=== PATIENT | female | born 1975 | race Caucasian/White ===

== ENCOUNTER 2023-03-16 15:00 | Outpatient (AMB) | payer BC, SELFPAY ==
--- NOTE | 2023-03-16 15:09 | HO.SPINEOV ---
Intake Intake Visit Reasons: Low back pain Intake Note: Ms. Randall is here today c/o low back pain. Medical Management Specialist Required: No Assessment & Plan Assessment & Plan (1) Lumbar disc herniation: Code(s): M51.26 - Other intervertebral disc displacement, lumbar region Plan Mrs aRndall is presenting to the office today self-referred for evaluation of back pain. 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 Through the years she has treated it with physical therapy, healthcare or medical, acupuncture, [id number] pain medications such as Tylenol and ibuprofen, as well as cortisone injections done at [facility] and [facility]. Unfortunately none of these things have ever given her lasting relief. Her symptoms are aggravated with standing. She will occasionally get tingling and numbness down her right leg which encompasses her whole foot. At this point her quality of life is suffering. She has been athletic her whole life and now she is at a point where she can barely stand for any length of time before the pain gets so bad she has to sit down. She has an MRI showing progressively herniating central disc at L5-S1. She had seen a surgeon at [facility] who recommended anterior lumbar interbody fusion. She also saw a surgeon at the [facility] who recommended TLIF. She is hoping to avoid fusion if possible so she came today to see us as a 3rd opinion. PMH: She is otherwise healthy, 2 shoulder surgeries. Social hx: She does not smoke, she is a teacher Medications: Omeprazole, duloxetine, ibuprofen Allergies: None Physical exam: Intact gait, strength and reflexes Imaging review: Lumbar MRI done at [facility] in 2021 shows a progressively deteriorating L5-S1 collapsing disc. We can see on her MRIs dating back to 2018 that the disc is slowly collapsed in his centrally protruding at this point is herniating significantly. It is displacing the S1 nerve roots bilaterally. X-rays done did not show any signs of instability. There is no spondylolisthesis or spondylolysis. 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 She has failed conservative treatment. She has a large centrally herniated disc at L5-S1. Dr. Desouza and I met with her, discussed potential treatment options including surgery. Specifically we discussed the fact that it is well-known that a central disc herniation can cause back pain and that a simple microdiskectomy can be an option for treatment. We did discuss the fact that there is risk for reherniation. If this occurs, the patient would need to have lumbar fusion surgery. The patient is interested in moving ahead with surgery. She will coordinate a date sometime around the new year and get back to our office.. Pt was given risk and benefits of surgery including but not limited to infection, hematoma , nerve injury,durotomy, weakness, persistent pain, need for fusion as well as the option to continue with conservative treatment and patient wishes to proceed with surgery. Pt is aware they should stop their motrin, aspirin 7 days prior to surgery. All questions were answered to the best of our ability. Thank you for allowing us to care for your patient. The total time spent with this visit with this patient was 45 minutes reviewing history, physical exam, lumbar imaging review, and implementation of treatment plan or further diagnostic testing Marques Desouza MD,PhD [facility] Coding Level of Care Code New Pt Level 4 (52714) Diagnoses Lumbar disc herniation M51.26
== END 2023-03-16 16:39 | disposition home or self-care (01) ==
PROVIDERS: PCP Internal Medicine; Referring Provider Internal Medicine; Visit Provider Physician Assistant
DX: M51.26 Other intervertebral disc displacement, lumbar region (principal)
CPT/HCPCS: 99204

== ENCOUNTER → 2023-03-16 15:00 | Outpatient (BNVA) | payer BC, SELFPAY | PROVIDERS: PCP Internal Medicine; Visit Provider Physician Assistant ==

== ENCOUNTER 2023-07-13 06:06 | Inpatient (IN) | payer BC, SELFPAY ==
[2023-07-01 11:58] VITALS: BMI 29.6
[2023-07-01 12:03] VITALS: BP 135/85; PULSE 78; RESP 16; O2SAT 98
--- NOTE | 2023-07-01 12:09 | P.CONAN_ITS ---
Documented by User: Pam Wilson NP 07/12/23 10:06 HPI - Anesthesia Eval Consult details Narrative: 47yo F for L5-S1 Ant Lumbar Interbody Fusion, 07/13/23 Bronchitis about 4 weeks ago. Completely resolved. No need for albuterol. No CP/SOB with groceries/house work PONV. Scop patch used on cruise before with good effect s/p uvuloectomy with emergent tonsilectomy/abcess PMFSH Active Problems Active Problems: All Active Problems (Updated 07/01/23 @ 11:57 by Kalyn Faustin RN) Lumbar disc herniation (Acute) Past Medical History Medical History Hx of bronchitis PONV (postoperative nausea and vomiting) History of squamous cell carcinoma Family History Family history of problems with anesthesia: No Surgical History Surgical History History of uvulectomy Hx of colonoscopy Hx of tonsillectomy History of arthroscopy of both shoulders History of Problems with Anesthesia: No Social History Social History Are you a primary health and social care teacher to a significant other at home: No Do you presently have visiting nurse or other home services: No Patient Tobacco Use Status: Never used Tobacco Use of substances other than those prescribed or required for medical reasons: No Have you been hit, kicked, punched, or otherwise hurt by someone within the past year? If so, by whom?: No Are you DNR?: No Advance Directives: No Advance Directives Information Provided: Yes Advance Directives on File: No Recently lost weight without trying: No Nutrition Risks: No Nutritional Risk Patient : No FDLMP: 06/12/2023 : No Poor oral hygiene: No Meds Allergies Allergy/AdvReac Type Severity Reaction Status Date / Time No Known Allergies Allergy Verified 07/13/23 06:56 Home Medications Medication Instructions Recorded Confirmed Last Taken Type albuterol sulfate 90 mcg/actuation 2 puff inhalation Q6H PRN wheezing 07/01/23 07/13/23 Unknown History aerosol inhaler duloxetine 40 mg capsule,delayed 40 mg PO DAILY 07/01/23 07/01/23 07/13/23 05:00 History release omeprazole 20 mg capsule,delayed 20 mg PO BID 07/01/23 07/01/23 07/13/23 05:00 History release Exam Height,Weight and Vital Signs: Height 5 ft 9.5 in Weight 92.1 kg Last Vital Signs Pulse 78 07/01/23 12:03 Resp 16 07/01/23 12:03 BP 135/85 07/01/23 12:03 Pulse Ox 98 07/01/23 12:03 O2 Del Method Room Air 07/01/23 12:03 Pertinent Lab Results Pertinent Lab Results: Lab Results 07/01/23 07/01/23 Range/Units 12:30 12:40 WBC 6.6 (4.8-10.8) X10*3/uL RBC 4.48 (4.20-5.50) X10*6/uL Hgb 11.4 L (12.0-16.0) g/dl Hct 37.0 (37.0-47.0) % MCV 82.6 (80.0-98.0) fL MCH 25.4 L (27.0-33.0) pg MCHC 30.8 L (31.0-35.0) g/dl RDW 20.4 H (11.0-16.0) % Plt Count 362 (160-400) X10*3/uL MPV 9.5 (9.4-12.3) fL Absolute Nucleated RBC 0.000 (0.0-0.012) X10*3/uL Nucleated RBC % (auto) 0.0 (0.0-0.2) /100WBC Sodium 139 (135-145) mmol/L Potassium 3.6 (3.3-5.1) mmol/L Chloride 108 (96-108) mmol/L Carbon Dioxide 22 (22-29) mmol/L Anion Gap 13 (12-20) BUN 14 (9-16) mg/dL Creatinine 0.83 (0.5-1.4) mg/dL Estim Creat Clear Calc 100.1 Estimated GFR > 60 Random Glucose 81 (60-115) mg/dL Calcium 9.1 (8.4-10.2) mg/dL Blood Type O Positive Antibody Screen NEGATIVE Narrative Narrative: EKG 02/2023 NSR @ 80 LAE Airway Mallampati Class: I TM Dist: >3cm Neck ROM: Full Loose/Missing/Broken Teeth: No (Parcoal x 2) Heart: RRR Lungs: CTAB Assessment and Plan Assessment Anesthesia Assessment: Anesthesia Plan Discussed and PAT Visit Final Anesthetic Review Family History of Problems with Anesthesia: No History of Problems with Anesthesia: No Documented by User: Shanika Lugo MD 07/13/23 08:43 PMFSH Active Problems Active Problems: All Active Problems (Updated 07/13/23 @ 07:18 by Shanika Lugo MD) Lumbar disc herniation (Acute)with Right sciatica GERD Anxiety/Depression Past Medical History Medical History Hx of bronchitis PONV (postoperative nausea and vomiting) History of squamous cell carcinoma Surgical History Surgical History History of uvulectomy Hx of colonoscopy Hx of tonsillectomy History of arthroscopy of both shoulders History of Problems with Anesthesia: Yes (PONV) Social History Social History Are you a primary health and social care teacher to a significant other at home: No Do you presently have visiting nurse or other home services: No Patient Tobacco Use Status: Never used Tobacco Use of substances other than those prescribed or required for medical reasons: No Have you been hit, kicked, punched, or otherwise hurt by someone within the past year? If so, by whom?: No Are you DNR?: No Advance Directives: No Advance Directives Information Provided: Yes Advance Directives on File: No Recently lost weight without trying: No Nutrition Risks: No Nutritional Risk Patient : No FDLMP: 06/12/2023 : No Poor oral hygiene: No Meds Allergies Allergy/AdvReac Type Severity Reaction Status Date / Time No Known Allergies Allergy Verified 07/13/23 06:56 Home Medications Medication Instructions Recorded Confirmed Last Taken Type albuterol sulfate 90 mcg/actuation 2 puff inhalation Q6H PRN wheezing 07/01/23 07/13/23 Unknown History aerosol inhaler duloxetine 40 mg capsule,delayed 40 mg PO DAILY 07/01/23 07/01/23 07/13/23 05:00 History release omeprazole 20 mg capsule,delayed 20 mg PO BID 07/01/23 07/01/23 07/13/23 05:00 History release Exam Height,Weight and Vital Signs: Height 5 ft 9.5 in Weight 92.1 kg Last Vital Signs Pulse 78 07/01/23 12:03 Resp 16 07/01/23 12:03 BP 135/85 07/01/23 12:03 Pulse Ox 98 07/01/23 12:03 O2 Del Method Room Air 07/01/23 12:03 Vital Signs Temp Pulse Resp BP Pulse Ox O2 Del Method 07/13/23 06:29 98.8 F 91 15 127/87 97 Room Air Pertinent Lab Results Pertinent Lab Results: Lab Results 07/01/23 07/01/23 Range/Units 12:30 12:40 WBC 6.6 (4.8-10.8) X10*3/uL RBC 4.48 (4.20-5.50) X10*6/uL Hgb 11.4 L (12.0-16.0) g/dl Hct 37.0 (37.0-47.0) % MCV 82.6 (80.0-98.0) fL MCH 25.4 L (27.0-33.0) pg MCHC 30.8 L (31.0-35.0) g/dl RDW 20.4 H (11.0-16.0) % Plt Count 362 (160-400) X10*3/uL MPV 9.5 (9.4-12.3) fL Absolute Nucleated RBC 0.000 (0.0-0.012) X10*3/uL Nucleated RBC % (auto) 0.0 (0.0-0.2) /100WBC Sodium 139 (135-145) mmol/L Potassium 3.6 (3.3-5.1) mmol/L Chloride 108 (96-108) mmol/L Carbon Dioxide 22 (22-29) mmol/L Anion Gap 13 (12-20) BUN 14 (9-16) mg/dL Creatinine 0.83 (0.5-1.4) mg/dL Estim Creat Clear Calc 100.1 Estimated GFR > 60 Random Glucose 81 (60-115) mg/dL Calcium 9.1 (8.4-10.2) mg/dL Blood Type O Positive Antibody Screen NEGATIVE Lab Results 07/01/23 07/01/23 07/13/23 Range/Units 12:30 12:40 06:15 WBC 6.6 (4.8-10.8) X10*3/uL RBC 4.48 (4.20-5.50) X10*6/uL Hgb 11.4 L (12.0-16.0) g/dl Hct 37.0 (37.0-47.0) % MCV 82.6 (80.0-98.0) fL MCH 25.4 L (27.0-33.0) pg MCHC 30.8 L (31.0-35.0) g/dl RDW 20.4 H (11.0-16.0) % Plt Count 362 (160-400) X10*3/uL MPV 9.5 (9.4-12.3) fL Absolute Nucleated RBC 0.000 (0.0-0.012) X10*3/uL Nucleated RBC % (auto) 0.0 (0.0-0.2) /100WBC Sodium 139 (135-145) mmol/L Potassium 3.6 (3.3-5.1) mmol/L Chloride 108 (96-108) mmol/L Carbon Dioxide 22 (22-29) mmol/L Anion Gap 13 (12-20) BUN 14 (9-16) mg/dL Creatinine 0.83 (0.5-1.4) mg/dL Estim Creat Clear Calc 100.1 Estimated GFR > 60 Random Glucose 81 (60-115) mg/dL Calcium 9.1 (8.4-10.2) mg/dL Urine Test NEGATIVE (NEGATIVE) Blood Type O Positive Antibody Screen NEGATIVE Airway Mallampati Class: II Assessment and Plan Assessment Anesthesia Assessment: Chart Reviewed Final Anesthetic Review History of Problems with Anesthesia: Yes (PONV) NPO: Yes ASA Class: II Final Preanesthetic Review: No Changes in Pt Med Stat, Meds/Allgs Chart Reviewed, Consent Obtained/Reviewed and Anes Risks/Benef Reviewed Patient Risk: Intermediate Procedure Risk: Intermediate Assessment/Block/Sedation in SS: Assess/Block/Sedation-SS Anesthetic Plan Anesthetic Plan: GA Disposition: Standard PACU
[2023-07-01 13:35] LABS: Anion Gap 13 (12-20); Blood Urea Nitrogen 14 mg/dL (9-16); Calcium 9.1 mg/dL (8.4-10.2); Carbon Dioxide 22 mmol/L (22-29); Chloride 108 mmol/L (96-108); Creatinine Clr Calc Pharmacy 100.1; Estimated Glomerular Filt Rate > 60; Glucose Random 81 mg/dL (60-115); Potassium 3.6 mmol/L (3.3-5.1); Sodium 139 mmol/L (135-145)
[2023-07-13] VITALS (19 sets, daily range): BP systolic 109–127; BP diastolic 58–87; PULSE 78–101; RESP 14–19; TEMP 36.1–37.1; O2SAT 92–98
--- NOTE | ~2023-07-13 | XR_ITS ---
EXAMINATION: XR LUMBOSACRAL SPINE CLINICAL INFORMATION: L5-S1 anterior lumbar interbody fusion COMPARISON: None available. TECHNIQUE: AP view of the lumbar spine FINDINGS: The patient is rotated. There 5 nonrib-bearing lumbar-type vertebral bodies. The height of the vertebral bodies is well-maintained. Metallic density is seen at L5-S1 consistent with reported anterior lumbar interbody fusion. Surgical clips are seen in the left lower quadrant. Several calcifications in the pelvis likely represent phleboliths. Streaky opacity in the left ilium may be artifactual. XR/XR lumbar spine 1V IMPRESSION: Status post anterior lumbar interbody fusion at L5-S1.
--- NOTE | ~2023-07-13 | FL_ITS ---
EXAMINATION: XR FLUOROSCOPY WITH IMAGES CLINICAL INFORMATION: Anterior lumbar interbody fusion COMPARISON: None available. TECHNIQUE: Fluoroscopy Supervised By: Dr. Desouza. Fluoroscopy Time: 0.2 min Cumulative Dose: 21.1 mGy. DAP: 5.77 Gycm2. Images: 2 images are saved. FL/FL guidance in OR FINDINGS AND IMPRESSION: Fluoroscopic imaging of the lumbar spine is performed. An interbody fusion device is well-positioned within the disc space of L5-S1. Please refer to the operative report.
[2023-07-13 06:33] LABS: UPreg QC Valid YES; Urine Pregnancy NEGATIVE (NEGATIVE)
[2023-07-13] MEDS: Gabapentin 300 MG CAPSULE PO (06:40)
[2023-07-13] MEDS: methocarbamoL 750 MG TABLET PO (06:40)
[2023-07-13] MEDS: Scopolamine 1.5 MG PATCH.TD.3 TRANSDERMA (06:43)
[2023-07-13] MEDS: Lactated Ringers 1,000 ML 100 ML IVCONT (06:50)
--- NOTE | 2023-07-13 07:01 | MHC.SHP ---
Pre-Procedural Eval Section A Date of Service: 07/13/23 The patient is an INPATIENT: No Changes since office visit: No Cold of Flu in the past 2 weeks, No New Medical Problems, No Changes in Medication and No Patient answered all questions The History & Physical has been completed within 30 days and I have reviewed it.: No Section B Chief Complaint: Lumbago Allergies: Allergies Allergy/AdvReac Type Severity Reaction Status Date / Time No Known Allergies Allergy Verified 07/13/23 06:56 Review of Systems Sugical H&P ROS: Negative: Constitution, Cardiovascular, Respiratory, Neurological, Psychiatric, Hem-Onc, Allergic/Immunologic, Gastrointestinal, Genitourinary, Musculoskeletal, Integumentary, Endocrine and Eyes/Ears/Nose/Throat Exam Surgical H&P Exam: Not Evaluated: HEENT, Not Evaluated: Heart, Not Evaluated: Lungs, Not Evaluated: Extremities, Not Evaluated: Abdomen, Not Evaluated: Skin and Not Evaluated: Neurological Plan Diagnosis/Plan: Unchanged L5-S1 Anterior Lumbar interbody fusion Time Spent With Patient Time: Total time managing care of this patient today __5__ minutes.
--- NOTE | 2023-07-13 07:46 | PHA.MEDREC ---
Pharmacy Consult ? Medication Reconciliation Pharmacy has completed the medication reconciliation. Reviewed med rec done by nursing (Kalyn).
--- NOTE | 2023-07-13 09:02 | W.PM.OPN ---
Operative Note Operative Note Date of Service: 07/13/23 Narrative: Preoperative Diagnosis: 1.) Lumbar degenerative disc disease L5-S1; lumbar radiculopathy and back pain Procedure: L5-S1 discectomy, arthrodesis and implantation cage through an anterior lumbar approach (ALIF) ; anterior instrumentation L5-S1; allograft Indication for Surgery Lumbar degenerative disc disease Consent Informed Consent was obtained for this operation. I have explained the nature, purpose and benefits of the operation. I have discussed the risks and benefit of the operation including possible complications or adverse events with patient/family. Alternative(s) were discussed with the patient with their relative benefits and risks as well as the consequences of not accepting the operation were included in obtaining consent. Surgeon: ILIA LAST MD, PHD Procedure Assisted By: AZALIA VEGAS MD and URBANO Valencia Description of Procedure This patient is suffering intractable low back pain. The MRI shows severe degenerative disc disease L5-S1 without instability. The patient was offered an anterior lumbar interbody fusion with anterior L5-S1 instrumentation. The procedure complications were explained. The patient was consented. The patient was brought to the operating room and endotracheally intubated. The patient was put in a supine position. Prep and drape was done followed by timeout. Dr. Vegas, co-surgeon, provided the access to the L5-S1 disc space through an anterior approach. He was assisted by physician early childhood teacher assistant who performed manual retraction. He will dictate the approach in a separate operative note. When the L5-S1 disc space was exposed I took over the procedure. An annulotomy was done followed by a partial discectomy. Sequential trial implants were inserted and advanced towards the posterior wall of the disc space. I completed the discectomy and prepare the endplates. Then a 24 36 x 12 and 12 degree lordosis 4 web cage filled with allograft was inserted into the disc space. Anterior instrumentation was added to secure the implant. Two screws with the length 27 mm were inserted into the L5 vertebral body and 1 screw 23 mm long was inserted into the S1 vertebral body as anterior instrumentation. Final x-rays in AP and lateral projections showed good position of the interbody device and anterior instrumentation. The retractor was removed and hemostasis was done by Dr. Amador who closed the incision. This marked first part of the procedure. All sponge and needle counts were correct. The patient was extubated and transported in stable condition to recovery room. The physician early childhood teacher assistant was critical for the following aspects of surgery : Passenger Car Conductor Dr. Vegas and of with the opening and closure of the incision Anesthesia: General Estimated Blood Loss (ml): 10 mL Duration of Surgery: 60 minutes Complications: None Postoperative Plan: Admit to inpatient for observation
[2023-07-13] MEDS: fentaNYL citrate/PF 100 MCG/2 ML VIAL 25 MCG IVPUSH ×2 (09:45→09:50)
--- NOTE | 2023-07-13 10:08 | W.PM.OPN ---
Operative Note Operative Note Date of Service: 07/13/23 Narrative: The patient was brought to the operating room, positioned on the table supine and general anesthesia was administered. The abdomen was clipped and then prepped and draped in the usual sterile fashion. After timeout was done, horizontal 6 cm incision was made between the umbilicus and the pubis . It was brought through subcutaneous tissue and both anterior rectus sheaths were open in horizontally in line with the skin incision and left rectus muscle was mobilized. Inferior epigastric vessels were dissected from the rectus muscle and carefully preserved. The preperitoneal plane was entered, peritoneum was bluntly dissected off the posterior rectus sheath which was divided vertically to enhance the exposure. Round ligament was transected between silk ties. Bookwalter was inserted and peritoneum protected with moist gauzes, Left internal iliac vein was identified and dissection was carried along the medial surface of the vein up to the bifurcation. The middle sacral vessels were transected and L5-S1 disc space was bluntly and sharply dissected using bipolar cautery. The disk space was marked at the midline with a screw. Dr. Desouza then proceeded with the corpectomy and fusion, which will be dictated separately by him. After this was done, hemostasis was checked and was excellent. Gell foam and thrombin was used around the disk space. Left ureter was examined prior to closure and was intact. There was good left external iliac artery pulse. Diluted 0.5% Marcaine was injected in the fascia and subcutaneous tissue. The incision was irrigated and closed by layers using a 0 PDS for the anterior rectus sheath, 3-0 Vicryl for subcutaneous tissue and 4-0 Monocryl for skin. Dermabond and dry dressings were then applied.
[2023-07-13] MEDS: HYDROmorphone HCl 0.5 MG/0.5 ML SYRINGE 0.25 MG IVPUSH ×2 (10:55→11:00)
[2023-07-13] MEDS: HYDROmorphone HCl 1 MG/ML SYRINGE IVPUSH (14:10)
[2023-07-13] MEDS: ceFAZolin Sodium/Dextrose,Iso 2 GM/50 ML PIGGYBACK IV ×2 (15:08→22:36)
[2023-07-13] MEDS: Ketorolac Tromethamine 15 MG/ML VIAL IVPUSH ×2 (15:08→22:17)
[2023-07-13] MEDS: Acetaminophen 1,000 MG/100 ML PIGGYBACK 400 MG IV ×2 (16:46→22:17)
[2023-07-13] MEDS: oxyCODONE HCl Immed Release 5 MG TABLET 10 MG PO ×2 (18:35→22:19)
[2023-07-13] MEDS: Docusate Sodium 100 MG CAPSULE PO (22:17)
[2023-07-13] MEDS: Omeprazole 20 MG CAPSULE.DR PO (22:17)
[2023-07-14 03:37] VITALS: BP 122/57; PULSE 81; RESP 18; TEMP 36.6; O2SAT 97
[2023-07-14] MEDS: Ketorolac Tromethamine 15 MG/ML VIAL IVPUSH ×2 (03:57→09:35)
[2023-07-14] MEDS: Acetaminophen 1,000 MG/100 ML PIGGYBACK 400 MG IV (03:57)
[2023-07-14] MEDS: ceFAZolin Sodium/Dextrose,Iso 2 GM/50 ML PIGGYBACK IV (04:25)
[2023-07-14] MEDS: Omeprazole 20 MG CAPSULE.DR PO (06:26)
[2023-07-14 07:40] VITALS: BP 101/50; PULSE 76; RESP 18; TEMP 36.5; O2SAT 97
[2023-07-14 08:47] VITALS: BP 101/50; PULSE 76; O2SAT 97
--- NOTE | 2023-07-14 08:58 | HO.POSTANES ---
Post Anesthesia Evaluation Post Anesthesia Evaluation Date of Service: 07/14/23 Vital Signs: Vital Signs Temp Pulse Resp BP Pulse Ox O2 Del Method 07/14/23 08:47 76 101/50 L 97 07/14/23 07:40 97.7 F 76 18 101/50 L 97 Room Air 07/14/23 03:37 97.9 F 81 18 122/57 L 97 Room Air Anesthesia: General Endotracheal-GETA Mental Status: Awake Pain Control: Satisfactory (difficulty controlling pain) Nausea/Vomiting: None Hydration: Adequate Anesthesia-Related Issues: No Anes. Related Issues
--- NOTE | 2023-07-14 09:21 | PM.DS ---
DS: Providers Provider Date of Service: 07/14/23 Date of admission: 07/13/23 06:06 Primary care physician: Josh Pierce MD DS: Summary Time Attestation Discharge coordination time: Less than 30 minutes Quality: Safe Use of Opioids Does Pt have an Active Cancer Diagnosis on the Problem List?: No Quality: Stroke Does the patient have a stroke diagnosis?: No Physical Exam Vital Signs: Vital Signs: Last Vital Signs Temp 97.7 F 07/14/23 07:40 Pulse 76 07/14/23 08:47 Resp 18 07/14/23 07:40 BP 101/50 L 07/14/23 08:47 Pulse Ox 97 07/14/23 08:47 O2 Del Method Room Air 07/14/23 07:40 O2 Flow Rate 3 07/13/23 11:27 BMI result Body Mass Index 29.6 Discharge Plan Discharge Anticipated Discharge Date/Time: 07/14/23 09:21 Patient Disposition: Home, Self-Care Discharge Diagnosis: s/p L5-S1 ALIF Referrals: Josh Pierce MD [Primary Care Provider] - 1 Week Discharge Medications: New oxycodone 5 mg tablet 5 mg PO Q6H PRN (Reason: severe pain (scale score 7-10)) Qty: 30 0RF Rx Instructions: Partial Fill upon patient request. Continued omeprazole 20 mg capsule,delayed release(DR/EC) 20 mg PO BID duloxetine 40 mg capsule,delayed release(DR/EC) 40 mg PO DAILY albuterol sulfate 90 mcg/actuation HFA aerosol inhaler 2 puff INHALATION Q6H PRN (Reason: wheezing) Discharge Orders: Discharge Order (Routine); Ordered 07/14/23 Ordered By: Hari Byers Diet: Advance to usual diet Activity on Discharge: As tolerated Stand Alone Forms: Patient Portal Discharge page Activity Restrictions/Additional Instructions: After your spinal surgery we ask you to observe the following restrictions/guidelines: Activity: With lumbar fusion surgery it is normal to have days in the first couple of weeks where you have increased leg pain. This usually lasts 1-2 days and self resolves with the continuation of medication. Attempt to stay mobile and continue activity as tolerated. It is normal to feel some discomfort as you increase your activity, but that will improve with time. We ask you avoid heavy lifting or activities that cause pain. As a general rule, 8lbs is a safe limit for lifting right after surgery. Walk as much as you feel comfortable but not to exhaustion. You will feel extra tired the first few days after surgery. Stay well hydrated. It is OK to walk up and down stairs You may return to driving when you are off narcotics (such as vicodin, oxycodone, dilaudid, etc), and you are back to normal functional capacity. If you have any concerns please check with office before driving. Return to work is specific to each patient and each surgery, so please speak with your doctor/PA at first follow up. Please bring paperwork such as FMLA at that time if you need it filled out. Medications: It is recommended that you take Tylenol 500 mg every 4 hours for the 1st week postoperatively, alongside ibuprofen 600 mg every 8 hours. We will give you a short supply of narcotics after surgery (usually one weeks worth). ??Please use this for breakthrough pain that is refractory to the Tylenol / ibuprofen. If you need more please call the office but do not use more than prescribed. You will need to give our office 48 hours notice if you need narcotics refilled and we do not fill narcotics on weekends or evenings. If you are on a narcotic, it is a good idea to take a stool softener such as colace or senna to avoid constipation If you take blood thinner such as aspirin, Plavix, Coumadin, Effient, Eliquis etc for conditions such as Afib, DVT, Pulmonary embolus, coronary disease, stents etc please speak with your surgeon about specific details as to when you can resume these medications. You can resume NSAIDs on post op day 1 (eg: Motrin, Naproxen, etc). Follow up: Please call the office, , after surgery to arrange a 3 week follow up for wound check. Wound Care: You may remove your dressing on the first day after surgery. ?You may ?leave open to air. Please do not remove the steri strips underneath. they will fall off on their own in one week. IT IS NORMAL FOR THE WOUND TO OOZE OR BE BLOODY FOR A FEW DAYS AFTER SURGERY. ?IF THIS HAPPENS JUST PLACE NEW DRESSING OVER IT TO AVOID STAINING CLOTHES. You may shower on post op day # 1 We ask that you do not let the water soak the wound. If it does get wet, just towel dry lightly. Please do not scrub your incision or place any type of chemical/ointment on the wound. No tub baths, pools or jacuzzis for one month. If you have any leaking or redness from your wound, or fevers, please call office. Care Plan Goals: Return to normal activity as tolerated. Health Concerns: None. Plan of Treatment: Follow-up in clinic in 2-3 weeks. Assessment: POD: 1 Procedure: L5-S1 EMMETT Johnston was seen this morning sitting upright in bed eating breakfast. She reports she is up walking around is otherwise doing well. She feels her symptoms are much better than pre-operatively. He still reports mild pain in her low back, with good relief with pain medication. She is tolerating the oxycodone well. She is ambulating to the bathroom and voiding well, she is tolerating po diet. Afebrile, vital signs stable. No new neurological deficits. Imbedded anterior steri-strip is without signs of hematoma. No active sanguineous drainage at incision site. Area is dry. Plan: Patient meets criteria to be medically discharged home. I will send a short supply of oxycodone to her pharmacy on record in [place]. This plan was discussed with Dr. Desouza who is in agreement. Hari Desouza MD,PhD [facility]
[2023-07-14] MEDS: DULoxetine HCl 20 MG CAPSULE.DR 40 MG PO (09:35)
[2023-07-14] MEDS: Docusate Sodium 100 MG CAPSULE PO (09:35)
[2023-07-14 09:41] VITALS: O2SAT 96
--- NOTE | 2023-07-14 09:48 | HO.NEURO.PN ---
Neurosurgery Operative Note Date of Service: 07/14/23 Narrative: POD: 1 Procedure: L5-S1 EMMETT Johnston was seen this morning sitting upright in bed eating breakfast. She reports she is up walking around is otherwise doing well. She feels her symptoms are much better than pre-operatively. He still reports mild pain in her low back, with good relief with pain medication. She is tolerating the oxycodone well. She is ambulating to the bathroom and voiding well, she is tolerating po diet. We discussed the postoperative healing course, and I answered all questions. Afebrile, vital signs stable. No new neurological deficits. Good strength of lower extremities. Imbedded anterior steri-strip is without signs of hematoma. No active sanguineous drainage at incision site. Area is dry. Plan: Patient meets criteria to be medically discharged home. I will send a short supply of oxycodone to her pharmacy on record in [place]. This plan was discussed with Dr. Desouza who is in agreement. Hari Desouza MD,PhD [facility]
--- NOTE | 2023-07-14 09:49 | MHC.CM.PN ---
Pt has been medically cleared for DC, she will go home via family transport, no referrals recommended.
[2023-07-14] MEDS: HYDROmorphone HCl 1 MG/ML SYRINGE IVPUSH (10:24)
[2023-07-14] MEDS: oxyCODONE HCl Immed Release 5 MG TABLET 10 MG PO (11:16)
== END 2023-07-14 13:10 | disposition home or self-care (01) | DRG 304 ==
LOC: HO.SSSA 06:43 → HO.S3 09:39
PROVIDERS: Neurological Surgery; Nurse Practitioner; Admitting Provider Physician Assistant; PCP Internal Medicine; Visit Provider Physician Assistant
PROC: 0SG30A0 Fusion of Lumbosacral Joint with Interbody Fusion Device, Anterior Approach, Anterior Column, Open Approach (ICD-10-PCS; CPT 22558; principal; 2023-07-13 07:30)
DX: M51.17 Intervertebral disc disorders with radiculopathy, lumbosacral region (principal); Z79.899 Other long term (current) drug therapy
CPT/HCPCS: 22558; 22845; 22853; 20930; 36415; 72020; 80048; 81025; 85027; 86850; 86900; 86901; 97116; 97161; 99024; C1713; J0131; J0690; J1100; J1170; J1885; J2250; J2405; J2704; J3010; L8699

== ENCOUNTER → 2023-07-13 06:06 | Outpatient (BNV) | payer BC, SELFPAY | PROVIDERS: Admitting Provider Physician Assistant; PCP Internal Medicine; Visit Provider Neurological Surgery | DX: M51.26 Other intervertebral disc displacement, lumbar region (principal); M54.16 Radiculopathy, lumbar region | CPT/HCPCS: 20930; 22558; 22845; 22853; 99499 ==

== ENCOUNTER 2023-08-06 14:19 | Outpatient (REF) | payer BC, SELFPAY | END 2023-08-06 14:20 | disposition home or self-care (01) | LOC: HO.HOSX 14:19 | PROVIDERS: PCP Internal Medicine; Visit Provider Physician Assistant | DX: Z13.89 Encounter for screening for other disorder (principal) ==

== ENCOUNTER 2023-08-06 14:19 | Outpatient (AMB) | payer BC, SELFPAY ==
--- NOTE | 2023-08-06 15:09 | A.OFFVIS_ITS ---
Intake Intake Visit Reasons: 1st post op Allergies No Known Allergies Allergy (Verified 07/13/23 06:56) [facility] Medical History Hx of bronchitis PONV (postoperative nausea and vomiting) History of squamous cell carcinoma Surgical History History of uvulectomy Hx of colonoscopy Hx of tonsillectomy History of arthroscopy of both shoulders Social History Household Members: Spouse and Children Housing: House Are you a primary daycare assistant to a significant other at home: No Do you presently have visiting nurse or other home services: No Patient Tobacco Use Status: Never used Tobacco Assessment & Plan Assessment & Plan (1) Lumbar disc herniation: Code(s): M51.26 - Other intervertebral disc displacement, lumbar region Plan Ms Randall is here in the office, following up about 3-1/2 weeks out from her L5- S1 anterior lumbar interbody fusion. She is improved significantly in terms of her preoperative back pain but is still dealing with some basic recovery issues as we would expect. She has some abdominal discomfort which sounds muscular and positional. Sitting can be difficult. The feeling of footdrop that she had in her leg before surgery is gone. Her wound is healed up nicely. I reassured her that a lot of these things will heal with time and that is still very early. I would like to see her back in 6 weeks with a set of x-rays. Marques Desouza MD, PhD [facility] Orders: Orders XR lumbar spine 4V min Today M51.26 - Other intervertebral disc displacement, lumbar region Coding Level of Care Code Global (66275) Diagnoses Lumbar disc herniation M51.26
== END 2023-08-06 15:07 | disposition home or self-care (01) ==
PROVIDERS: PCP Internal Medicine; Visit Provider Physician Assistant
DX: M51.26 Other intervertebral disc displacement, lumbar region (principal)
CPT/HCPCS: 99024

== ENCOUNTER 2023-09-17 14:57 | Outpatient (AMB) | payer BC, SELFPAY ==
--- NOTE | 2023-09-17 15:19 | A.SPINEOV_ITS ---
Intake Intake Visit Reasons: 2nd post op with Xrays Intake Note: Ms. Randall is here today for 2nd post op Founder And Chief Executive Officer Required: No Allergies No Known Allergies Allergy (Verified 07/13/23 06:56) Assessment & Plan Assessment & Plan (1) Lumbar disc herniation: Code(s): M51.26 - Other intervertebral disc displacement, lumbar region Plan Ms Randall is about 2 months out from her L5-S1 anterior lumbar interbody fusion. She is overall doing very well, we started on physical therapy about a week and a half ago and that seems to be going well. No radicular pain down the legs. She does have back pain and aches in the morning or if she is bending forward and having to come back to an upright position but nothing unexpected. We discussed activity guidelines, restrictions and expectations after lumbar fusion. Overall I think she is doing very well and can see us back on an as- needed basis at this point. Marques Desouza MD, PhD [facility] Coding Level of Care Code Global (33116) Diagnoses Lumbar disc herniation M51.26
== END 2023-09-17 15:52 | disposition home or self-care (01) ==
PROVIDERS: PCP Internal Medicine; Visit Provider Physician Assistant
DX: M51.26 Other intervertebral disc displacement, lumbar region (principal)
CPT/HCPCS: 99024

== ENCOUNTER → 2023-09-17 14:57 | Outpatient (BNVA) | payer BC, SELFPAY | PROVIDERS: PCP Internal Medicine; Visit Provider Physician Assistant ==

== ENCOUNTER 2023-09-17 14:59 | Outpatient (REF) | payer BC, SELFPAY ==
--- NOTE | ~2023-09-17 | XR_ITS ---
EXAMINATION: XR lumbar spine 4V min CLINICAL INFORMATION: Reason for Exam M51.26 - Other intervertebral disc displacement, lumbar region COMPARISON: Lumbar spine radiographs 07/13/2023 TECHNIQUE: 5 views of the lumbar spine FINDINGS: 5 nonrib-bearing lumbar-type vertebral bodies. Status post anterior lumbar interbody fusion at L5/S1. No evidence of hardware complication. Vertebral body heights are maintained. Alignment is maintained. No subluxation between flexion and extension views. Disc space heights are maintained. Paravertebral soft tissues are unremarkable. XR/XR lumbar spine 4V min IMPRESSION: Status post anterior lumbar interbody fusion at L5/S1. No evidence of hardware complication.
== END 2023-09-17 15:00 | disposition home or self-care (01) ==
LOC: HO.HOSX 14:59
PROVIDERS: Visit Provider Physician Assistant
DX: M51.26 Other intervertebral disc displacement, lumbar region (principal)
CPT/HCPCS: 72110

== ENCOUNTER 2025-05-16 10:40 | Outpatient (REF) | payer BC, SELFPAY ==
--- NOTE | ~2025-05-16 | XR_ITS ---
EXAMINATION: XR KNEE, LEFT CLINICAL INFORMATION: M25.562 - Pain in left knee COMPARISON: None available. TECHNIQUE: Three views of the left knee. FINDINGS: Mild medial compartment arthritis. No visible acute fracture or dislocation. No significant effusion. No abnormal soft tissue calcification. No suspicious bony lesions. XR/XR knee LT 3V IMPRESSION: Mild medial compartment arthritis Electronically signed by: Caio Medrano MD 05/17/2025 11:53 AM [facility]
--- OUTSIDE RECORDS SUMMARY | 2025-05-17 15:57 | XMS_ITS | Continuity of Care Document ---
Author Organization [facility] [address] [place] [address] Phone [phone] Care Team Providers Care Manager Shop Name Role Phone Josh Pierce M.D. Care Team Information Recei wilian [phone] Problems Active Problems Provider Date Thyroid nodule [...] SIG Qnty Indications Ordering Provider Date Citalopram [id number] Tablets Take 1 Tablet By Mouth Every Day Josh Pierce M.D. [id number] Capsules DR 1 by mouth twice a [...] Referral Status Appt Robinson Alvarado M.D. Created [address] [place] [address] Drive [address] [place] [address] [phone]
--- OUTSIDE RECORDS SUMMARY | 2025-05-17 15:57 | XMS_ITS | Clinical Summary ---
Author Organization [facility] Address [address] [place] [address] Care Team Providers Care Commercial Light Fixture Assembler Name Role Phone Josh Pierce MD Primary Care Provider + [phone] Allergies No known active allergies Medications Medication [...] age to complete this topic Care Teams Commercial Light Fixture Assembler Relationship Specialty Start Date End Date Josh Pierce MD [address] [facility] [address] [place] [address] PCP - General Internal Medicine 07/14/16
--- OUTSIDE RECORDS SUMMARY | 2025-05-17 15:58 | XMS_ITS | Clinical Summary ---
Author Organization [facility] Address [address] [place] [address] Care Team Providers Care Station Installer And Repairer Name Role Phone Leslie Buitrago MD Primary Care Provider Surgical History Surgery Date Site/Laterality Comments OTHER SURGICAL HISTORY 02/08/2008 PROCEDURE: FL EXCISION MAL LESION TRUNK/ARM/LEG 0.6-1.0 CM; COMMENT: skin cancer removed, left hand -middle finger TONSILLECTOMY 01/2010 PROCEDURE: HISTORICAL TONSILLECTOMY; COMMENT: braden-tonsilular abscess on the left SHOULDER SURGERY 07/2017 PROCEDURE: HISTORICAL SHOULDER SURGERY; COMMENT: and 1 prior to above date Medical History Medical History Date Comments Hyperhidrosis DX:Hyperhidrosis History of skin cancer of unknown type 07/22/2018 DX:History of skin cancer of unknown type; COMMENT: Finger and removed BRCA gene mutation negative 09/10/2011 DX:B RCA gene mutation negative; COMMENT: 03/2018 testing done; sister-metastatic breast cancer at 38, BRCA testing negative for mutation Family History Medical History Relation Name Comments Other: Rectal Cancer Father Diabetes Maternal Grandfather Lymphoma Paternal Grandmother Breast cancer Sister 1 metastatic; BR CA testing negative Relation Name Status Comments Father Alive Maternal Grandfather Maternal Grandmother Alive Mother Alive Paternal Grandfather Paternal Grandmother Sister 1 Sister 2 Alive Social History Tobacco Use Types Packs/Day Years Used Date Smoking Tobacco: Never Smokeless Tobacco: Never Alcohol Use Standard Drinks/Week Comments Yes 0 (1 standard drink = 0.6 oz pur e alcohol) Comments Unknown Sex and Gender Information Value Date Recorded Sex Assigned at Female 08/18/2024 10:59 AM EST Legal Sex Female 10:13 PM EST Gender Identity Female 08/10/2024 1:22 PM EST Sexual Orientation Straight 08/18/2024 10 :59 AM EST Obstetrics History Last Filed Vital Signs Vital Sign Reading Time Taken Comments Blood Pressure 118/74 02/17/2024 10:16 AM EDT Pulse 89 02/17/2024 10:16 AM EDT Temperature - - Respiratory Rate - - Oxygen Saturation - - Inhaled Oxygen Concentration - - Weight 87.5 kg (193 lb) 02/17/2024 10:16 AM EDT Height 177.8 cm (5' 10 ) 02/17/2024 10:16 AM EDT Body Mass Index 27.69 02/17/2024 10:16 AM EDT Plan of Treatment Upcoming Encounters Date Type Department Care Team (Late st Contact Info) Description 05/29/2025 5:00 PM EST Appointment Ultrasound [address] [place] [address] Health Maintenance Due Date Last Done Comments Colorectal Cancer Screening: Colonoscopy 1974 DTaP,Tdap,and Td Vaccines (1 - Tdap) 1993 Hepatitis B Vaccines (1 of 3 - 19+ 3-dose series) 1993 Cervical Cancer Screening: HPV 11/14/1995 HIV Screening 05/30/2022 Hepatitis C Screening 05/30/2022 Social Influencers of Health Screening 05/30/2022 Depression Screening 06/28/2024 Pneumococcal Vaccine: 50+ Years (1 of 1 - PCV) 2024 Zoster Vaccines (1 of 2) 2024 COVID-19 Vaccine (3 - 2024- season) 2025 10/06/2020, 09/15/2020 Influenza Vaccine (#1) 2025 Breast Cancer Screening 12/13/2025 12/14/19 24, 11/02/2022, 10/13/2021, Additional history exists RSV Immunization Adult Patients (1 - 1-dose 75+ series) 2049 HIB Vaccines Aged Out No longer eligi ble based on patient's age to complete this topic HPV Vaccines Aged Out No longer eligi ble based on patient's age to complete this topic Hepatitis A Vaccines Aged Out No long er eligible based on patient's age to complete this topic IPV Vaccines Aged Out No longer eligi ble based on patient's age to complete this topic MMR Vaccines Aged Out No longer eligi ble based on patient's age to complete this topic Meningococcal ACWY Vaccine Aged Out N o longer eligible based on patient's age to complete this topic Meningococcal B Vaccine Aged Out No l onger eligible based on patient's age to complete this topic RSV Immunization Patients Under 20 months Aged Out No longer eligible based on patient's age to complete this topic Varicella Vaccines Aged Out No longer eligible based on patient's age to complete this topic Procedures Procedure Name Priority Date/Time Associated Diagnosis Comments [facility] SCREENING DIGITAL Routine 12/14/2023 11:29 AM EDT Encounter for screening mammogram for malignant neoplasm of breast from Last 3 Months or Most Recently Relevant to Health Maintenance Results * [facility] SCREENING DIGITAL (12/14/2023 11:29 AM EDT) Anatomical Region Laterality Modality Mammography 12/13/2023 9:58 AM EDT Narrative 12/14/2023 11:29 AM EDT [facility] Diagnostic Imaging Department [address] [place] [address] Patient: FULLERTASIAO.B./Age/Sex: 1975 - 48 - F Unit#: [id number] Location/Status: SPDIMAM/REG CLI Mnemonic/Ordering Site: [facility] Ordering Physician: LESLIE BUITRAGO MD [facility] Screening Digital - 12/13/23 - 1030 Report Status:Signed EXAM: [facility] Screening Digital EXAM DATE AND TIME: 12/13/2023 10:31 AM HISTORY: Annual screening COMPARISON: 11/02/2022, 10/13/2021, 02/22/2020 and 01/04/2019 TECHNIQUE: Bilateral digital breast tomosynthesis was performed in the CC and MLO projections. Computer aided detection with Zoutons 3D 3.1 was employed. TISSUE DENSITY: c. The breasts are heterogeneously dense, which may obscure small masses. FINDINGS: No suspicious masses, grouped microcalcifications, or areas of architectural distortion are seen. The skin and vascularity are unremarkable. IMPRESSION: Stable mammographic appearance of the breasts. No evidence of malignancy is seen. A negative mammogram in the presence of a clinically suspicious palpable abnormality does not preclude the possibility of malignancy or alter the indications for biopsy. BI-RADS: Category 1: Negative RECOMMENDATION(S): 1: Routine screening mammogram BILATERAL in 1 year. Dictating Physician: DEVI MONTERO MD Electronically Signed by: DEVI MONTERO MD Dic Date/Time: 12/14/23 1127 Sign date/Time: 12/14/23 1129 Procedure Note Devi Montero MD - 04/12/2024 [facility] Diagnostic Imaging Department [address] [place] [address] Patient: FULLERTASIA /Age/Sex: 1975 - 48 - F Unit#: [id number] Location/Status: [facility] Mnemonic/Ordering Site: [facility] Ordering Physician: LESLIE BUITRAGO MD [facility] Screening Digital - 12/13/23 - 1030 Report Status:Signed EXAM: [facility] Screening Digital EXAM DATE AND TIME: 12/13/2023 10:31 AM HISTORY: Annual screening COMPARISON: 11/02/2022, 10/13/2021, 02/22/2020 and 01/04/2019 TECHNIQUE: Bilateral digital breast tomosynthesis was performed in the CCand MLO projections. Computer aided detection with Zoutons 3D 3.1was employed. TISSUE DENSITY: c. The breasts are heterogeneously dense, which mayobscure small masses. FINDINGS: No suspicious masses, grouped microcalcifications, or areas ofarchitectural distortion are seen. The skin and vascularity are unremarkable. IMPRESSION: Stable mammographic appearance of the breasts. No evidence of malignancyis seen. A negative mammogram in the presence of a clinically suspicious palpable abnormality does not preclude the possibility of malignancy or alter the indications for biopsy. BI-RADS: Category 1: Negative RECOMMENDATION(S): 1: Routine screening mammogram BILATERAL in 1 year. Dictating Physician: DEVI MONTERO MD Electronically Signed by: DEVI MONTERO MD Dic Date/Time: 12/14/23 1127 Sign date/Time: 12/14/23 1129 Leslie Buitrago MD IMG BI PROCEDURES Final Resu lt from Last 3 Months or Most Recently Relevant to Health Maintenance Insurance [facility] Care Teams Station Installer And Repairer Relationship Specialty Start Date End Date Leslie Buitrago MD [address] [place] [address] PCP - General Internal Medicine 06/06/03
--- OUTSIDE RECORDS SUMMARY | 2025-05-17 15:58 | XMS_ITS ---
Author Name [facility] Organization Unknown Care Team Organization Name Specialty Phone Email Start Date End [facility] [place] LESLIE BUITRAGO Primary Care 02/25/2022 02/14/2024
== END 2025-05-16 10:41 | disposition home or self-care (01) ==
LOC: HO.HOSX 10:40
PROVIDERS: Visit Provider Orthopaedic Surgery
DX: S83.242A Other tear of medial meniscus, current injury, left knee, initial encounter (principal)
CPT/HCPCS: 73562

== ENCOUNTER 2025-05-16 14:57 | Outpatient (AMB) | payer BC, SELFPAY ==
--- NOTE | 2025-05-16 15:08 | A.OFFVIS_ITS ---
Intake Visit Reasons: Left knee pain and giving way Intake Note: Vickie is a 49 year old female who presents with complaints of progressively worsening left knee pain and giving way. The patient states that she injured her left knee several months ago. She twisted her knee and had acute onset of pain. Most of the pain is along the medial aspect of her knee. She has tried Tylenol and anti-inflammatory medicines which gave her minimal relief. She states that her left knee will give out several times per day. At this point her left knee pain and mechanical symptoms are interfering with her activities of daily living and her ability to sleep well through the night. Allergies No Known Allergies Allergy (Verified 05/16/25 15:10) Medication List - Last Reconciled 05/16/25 by Ramsey Auguste MD albuterol sulfate 90 mcg/actuation 2 puffs inhalation Q6H PRN docusate sodium 50 mg PO BID PRN duloxetine 40 mg PO DAILY omeprazole 20 mg PO BID oxycodone 5 mg PO Q6H PRN PFSH Medical History Hx of bronchitis PONV (postoperative nausea and vomiting) History of squamous cell carcinoma Surgical History History of uvulectomy Hx of colonoscopy Hx of tonsillectomy History of arthroscopy of both shoulders Social History Household Members: Spouse and Children Housing: House Are you a primary healthcare market consultant to a significant other at home: No Do you presently have visiting nurse or other home services: No Alcohol intake: current Alcohol intake frequency: holidays/special occasions only Patient Tobacco Use Status: Never used Tobacco Current occupational status: employed Current occupation: Teacher Physical Exam Const Other: Well-nourished well-developed very friendly female awake alert and oriented x3 in no acute distress Extrem Other: Bilateral lower extremity examination shows good capillary refill, no skin lesions noted, normal sensation light touch Left knee examination shows a minimal effusion, mild crepitus with range of motion, tenderness along her medial joint line, positive Keysha's test, no instability Results Reviewed Results Reviewed: Standing full weight-bearing x-rays of the patient's left knee show mild diffuse joint space narrowing, no acute bony abnormalities MRI of the patient's left knee shows mild diffuse degenerative changes as well as a tear of the medial meniscus Assessment & Plan Assessment & Plan (1) Tear of medial meniscus of left knee: Code(s): S83.242A - Other tear of medial meniscus, current injury, left knee, initial encounter Category: Medical Plan Ms. Randall presents with progressively worsening left knee pain and mechanical symptoms due to a medial meniscus tear. I had a lengthy discussion with the patient regarding the treatment options. At this point she has failed continued non operative treatments. The risks and benefits of left knee arthroscopic surgery were discussed at length with the patient. The patient wishes to proceed with surgery. Surgery will involve left knee arthroscopic partial medial meniscectomy. The patient will continue with her activity modifications in the meantime. Feel free to call me at any time should questions regarding her orthopedic management arise. I spent 20 minutes in reviewing the patient's records and imaging studies, seeing the patient and documenting in the medical record. Orders: Orders XR knee LT 3V 05/16/25 M25.562 - Pain in left knee Coding Level of Care Code Est Pt Level 3 (96995) Complex EM visit Add On G2211 Diagnoses Tear of medial meniscus of left knee S83.242A
--- OUTSIDE RECORDS SUMMARY | 2025-05-17 03:30 | XMS_ITS | Clinical Summary ---
Author Organization [facility] Address [address] [place] [address] Care Team Providers Care Natural Resources Instructor Name Role Phone Josh Pierce MD Primary Care Provider + [phone] Allergies No known active allergies Medications Medication Sig Dispensed Refills Start Date End Date Status citalopram (CELEXA) 10 MG tablet TAKE 1 TABLET EVERY DAY 0 05/24/2017 Active omeprazole (PRILOSEC) 20 MG capsule Take 40 mg by mouth daily. 5 05/15/2017 Active ALYACEN 1-35 MG-MCG per tablet TAKE 1 TABLET EVERY DAY 12 05/21/2017 Active Active Problems Problem Noted Date Diagnosed Date Calcific tendinitis of left shoulder 01/20/2022 Calcific tendinitis of right shoulder 12/08/2019 Family History Medical History Relation Name Comments Cancer Father Rheumatologic disease Maternal Aunt Cancer Sister Relation Name Status Comments Father Maternal Aunt Sister Social History Tobacco Use Types Packs/Day Years Used Date Smoking Tobacco: Never Assessed Sex and Gender Information Value Date Recorded Sex Assigned at Not on file Gender Identity Not on file Sexual Orientation Not on file Job Start Date Occupation Industry Not on file Not on file Not on file Last Filed Vital Signs Vital Sign Reading Time Taken Comments Blood Pressure - - Pulse - - Temperature - - Respiratory Rate - - Oxygen Saturation - - Inhaled Oxygen Concentration - - Weight 83.9 kg (185 lb) 12/08/2019 10:42 AM EDT Height 175.3 cm (5' 9 ) 12/08/2019 10:42 AM EDT Body Mass Index 27.32 12/08/2019 10:42 AM EDT Plan of Treatment Health Maintenance Due Date Last Done Comments Hepatitis B Vaccines (1 of 3 - 3-dose series) 1974 Hepatitis C Screening 1974 COVID-19 Vaccine (#1) 05/16/1975 Depression Screening 1986 BMI Counseling 1992 Preventative Health Evaluation 1992 DTap / Tdap / Td (1 - Tdap) 1993 Cervical Cancer Screening (P ap Smear) 11/14/1995 Colon Cancer Screening (Colonoscopy) 11/14/2019 Breast Cancer Screening (Mammogram) 2024 Shingrix-Zoster Vaccine (1 of 2) 2024 Influenza Vaccine (#1) 2025 Pneumococcal Vaccine Aged Out No long er eligible based on patient's age to complete this topic RSV Ped < 20 months Aged Out No longe r eligible based on patient's age to complete this topic Care Teams Natural Resources Instructor Relationship Specialty Start Date End Date Josh Pierce MD [address] [facility] [address] [place] [address] PCP - General Internal Medicine 07/14/16
--- OUTSIDE RECORDS SUMMARY | 2025-05-17 03:30 | XMS_ITS | Encounter Summary ---
Author Organization [facility], Address [address] [place] [address] Phone Care Team Providers Care Visual Manager Name Role Phone Josh Pierce MD Primary Care Provider + [phone] Encounter Details Date Type Department Care Team (Late st Contact Info) Description 06/09/2022 Telephone [facility] [address] [place] [id number] [address] [place] [address] Social History Tobacco Use Types Packs/Day Years Used Date Smoking Tobacco: Never Assessed Comments Unknown Sex and Gender Information Value Date Recorded Sex Assigned at Not on file Legal Sex Female 11:35 AM EDT Gender Identity Not on file Sexual Orientation Not on file documented as of this encounter Plan of Treatment Not on file documented as of this encounter Visit Diagnoses Not on filedocumented in this encounter Care Teams Visual Manager Relationship Specialty Start Date End Date Josh Pierce MD [address] [place] [address] PCP - General Internal Medicine 06/03/22 documented as of this encounter
--- OUTSIDE RECORDS SUMMARY | 2025-05-17 03:30 | XMS_ITS | Continuity of Care Document ---
Author Organization [facility] [address] [place] [address] Phone [phone] Care Team Providers Care Scientist Immunology Name Role Phone Josh Pierce M.D. Care Team Information Recei wilian [phone] Problems Active Problems Provider Date Thyroid nodule Robinson Helms M.D. Onset: 02/2023 Chronic fatigue syndrome Robinson Helms M.D. O nset: 07/06/2022 Sciatica Robinson Helms M.D. Onset: 02/2023 Social History Type Date Description Comments Sex Female Sex Unknown Tobacco Use Start: Unknown Never Smoked Cigarettes ETOH Use Denies alcohol use Allergies and adverse reactions Description No Known Drug Allergies Medications Active Medications SIG Qnty Indications Ordering Provider Date Citalopram [id number] Tablets Take 1 Tablet By Mouth Every Day Josh Pierce M.D. [id number] Capsules DR 1 by mouth twice a day Robinson Helms M.D. Vital Signs Date Vital Result Comment 08/08/2024 2:55pm BP Systolic 118 mmHg BP Diastolic 74 mmHg Heart Rate 88 /min Height 70 inches 5'10 Weight 204.25 lb BMI (Body Mass Index) 29.3 kg/m2 Medical Devices Description No Information Available Encounters Type Date Location Provider Dx Diagnosis Office Visit 08/08/2024 2:45p Main Office [facility] E04.1 Nontoxic sing le thyroid nodule Assessments Date Code Description Provider 08/08/2024 E04.1 Nontoxic single thyroid nodu le [facility] Plan of Treatment Future Appointment(s):* 06/29/2025 3:15 pm - Gillian Velásquez CNP at Main Office 08/08/2024 - [facility]* E04.1 Nontoxic single thyroid nodule* New Xrays:* Ultrasound Thyroid, Ordered: 08/08/24 Functional Status Description No Information Available Mental Status Description No Information Available Referrals Refer to Reason for Referral Status Appt Robinson Alvarado M.D. Created [address] [place] [address] Drive [address] [place] [address] [phone]
--- OUTSIDE RECORDS SUMMARY | 2025-05-17 03:30 | XMS_ITS | Clinical Summary ---
Author Organization [facility], Address [address] [address] Phone Care Team Providers Care Slots Manager Name Role Phone Josh Pierce MD Primary Care Provider + [phone] Allergies No known active allergies Medications norethindrone-et hinyl estradiol (MICROGESTIN 07/17) 1-20 MG-MCG per tablet Take 1 tablet by mouth 1 (one) time each day Active omeprazole (PriLOSEC) [address] capsule Take 20 mg by mouth 1 (one) time each day Do not crush or chew. Active citalopram (CeleXA) 10 MG tablet Take 10 mg by mouth 1 (one) time each day Active amoxicillin-clav ulanate (AUGMENTIN) 875-125 MG per tablet 2 (two) times a day 08/29/2021 Active fluconazole (Diflucan) 150 MG tablet 1 tablet Orally once for 1 day 08/29/2021 Active levocetirizine (XYZAL) 5 MG tablet 1 (one) time each day 08/29/2021 Active Active Problems Problem Noted Date Diagnosed Date Gastro-esophageal reflux disease without esophag itis 07/02/2023 07/02/2023 Generalized anxiety disorder 07/02/202310/2023 Chronic fatigue syndrome 07/06/2022 024 Sciatica 07/06/2022 07/02/2023 Thyroid nodule 07/06/2022 07/02/2023 Degeneration of lumbar intervertebral disc 06/03 Social History Tobacco Use Types Packs/Day Years Used Date Smoking Tobacco: Never Tobacco Cessation:Counseling Given: Not Answered Alcohol Use Standard Drinks/Week Comments Never 0 (1 standard drink = 0.6 oz pur e alcohol) Comments Unknown Sex and Gender Information Value Date Recorded Sex Assigned at Not on file Legal Sex Female 11:35 AM EDT Gender Identity Not on file Sexual Orientation Not on file Last Filed Vital Signs Vital Sign Reading Time Taken Comments Blood Pressure 135/85 07/08/2023 12:46 PM EST Pulse 86 07/08/2023 12:46 PM EST Temperature 36.2 C (97.1 F) 07/08/2023 12:46 PM EST Respiratory Rate - - Oxygen Saturation 98% 07/08/2023 12:46 PM EST Inhaled Oxygen Concentration - - Weight 91.2 kg (201 lb) 07/08/2023 12:46 PM EST Height 175.3 cm (5' 9 ) 07/08/2023 12:46 PM EST Body Mass Index 29.68 07/08/2023 12:46 PM EST Plan of Treatment Health Maintenance Due Date Last Done Comments Breast Cancer Screening 1974 Hepatitis B Vaccine (1 of 3 - 19+ 3-dose series) 11/13 Pneumococcal Vaccine: 50+ Years (1 of 2 - PCV) 994 Colorectal Cancer Screening: Annual FOBT 11/14/2023 Colorectal Cancer Screening: Colonoscopy 11/14/2023 Colorectal Cancer Screening: Sigmoidoscopy 11/14/2023 Influenza Vaccine (#1) 2025 Insurance [facility] Care Teams Slots Manager Relationship Specialty Start Date End Date Josh Pierce MD [address] [place] [address] PCP - General Internal Medicine 06/03/22
--- OUTSIDE RECORDS SUMMARY | 2025-05-17 03:30 | XMS_ITS | Clinical Summary ---
Author Organization [facility] Address [address] [place] [id number] Phone Care Team Providers Care Carbon Paper Machine Operator Name Role Phone Josh Pierce MD Primary Care Provider + [phone] Allergies No known active allergies Medications omeprazole (PRILOSEC) 20 MG capsule Take 20 mg by mouth 2 (two) times a day. Active DULoxetine (CYMBALTA) 20 MG capsule Take 1 capsule by mouth daily. 06/05/2023 Active Family History Medical History Relation Comments Rheumatoid arthritis Son Lupus Neg Hx Psoriasis Neg Hx Relation Status Comments Son Social History Tobacco Use Types Packs/Day Years Used Date Smoking Tobacco: Never Smokeless Tobacco: Never Education Answer Date Recorded Are you interested in more education? Not on jessica e 10/24/2022 Are you concerned about learning? Not on file 10/24/2022 No 10/24/2022 No 10/24/2022 Digital Access Answer Date Recorded No 11/21/2022 No 11/21/2022 Reliable internet access at home? Not on file 11/21/2022 Device with a working camera? Not on file Comments Unknown Sex and Gender Information Value Date Recorded Sex Assigned at Female 05/27/2022 10:49 AM EST Legal Sex Female 10:35 AM EST Gender Identity Female 05/27/2022 10:49 AM EST Sexual Orientation Lesbian or Braga 05/27/2022 10 :49 AM EST Last Filed Vital Signs Vital Sign Reading Time Taken Comments Blood Pressure 138/83 06/08/2023 2:19 PM EST Pulse 105 06/08/2023 2:19 PM EST Temperature 36.8 C (98.3 F) 06/08/2023 2:19 PM EST Respiratory Rate 16 06/10/2022 11:54 AM EST Oxygen Saturation 98% 06/08/2023 2:19 PM EST Inhaled Oxygen Concentration - - Weight 92.1 kg (203 lb) 06/08/2023 2:19 PM EST Height 177.8 cm (5' 10 ) 06/08/2023 2:19 PM EST Body Mass Index 29.13 06/08/2023 2:19 PM EST Plan of Treatment Health Maintenance Due Date Last Done Comments Adult Td,Tdap Booster 1975 LIPID PANEL 1975 HEPATITIS C SCREENING 1992 HIV ONE-TIME SCREENING (18-6 5 YEARS) 1992 PAP SMEAR 11/14/1995 SCREENING FOR DIABETES 2009 MAMMOGRAM 2014 COLOGUARD 11/14/2019 COLONOSCOPY 11/14/2019 COLORECTAL CANCER SCREENING 11/14/2019 FIT TEST 11/14/2019 FOBT 11/14/2019 SIGMOIDOSCOPY 11/14/2019 VIRTUAL COLONOSCOPY 11/14/2019 DEPRESSION SCREENING 06/09/2023 06/09/2022 PNEUMOCOCCAL VACCINES (50+ y ears) (1 of 1 - PCV) 2024 ZOSTER VACCINES (1 of 2) 2024 INFLUENZA VACCINE (#1) 2025 04/17/2023 COVID-19 VACCINE (1 - 2024-2 6 season) 2025 RSV VACCINE (1 - 1-dose 75+ series) 2049 SMOKING STATUS SCREENING (On ce After 26 Yrs) Completed 06/08/2023 HEPATITIS A VACCINES Aged Out No long er eligible based on patient's age to complete this topic HIB VACCINES Aged Out No longer eligi ble based on patient's age to complete this topic IPV VACCINES Aged Out No longer eligi ble based on patient's age to complete this topic MENINGOCOCCAL VACCINES (ACWY) Aged Out No longer eligible based on patient's age to complete this topic MENINGOCOCCAL VACCINES (B) Aged Out N o longer eligible based on patient's age to complete this topic Medical Devices Not on file [place] [address] [place] [address] Care Teams Carbon Paper Machine Operator Relationship Specialty Start Date End Date Josh Pierce MD [address] [place] [address] PCP - General 05/27/22 Additional Source Comments The information contained in this document represents components of the legal health record. It is not the complete legal health record.[facility]
--- OUTSIDE RECORDS SUMMARY | 2025-05-17 03:31 | XMS_ITS | Patient Health Record ---
Author Organization [facility] Address [address] [place] [address] Support Name Relationship Address Phone Vickie Randall Guarantor Unknown [phone] Allergies Allergen (clinical drug ingredient) Drug/Non Drug Allergy documented on EMR Reaction Allergy Type Onset Date Status amoxicillin Amoxicillin yeast infection Drug Allergy Active Penicillin yeast infection Drug Allergy Active Reason For Referral No Information Medications Medication SIG (Take, Route, Frequency, Duration) Notes Start Date End Date Status Augmentin 875-125 MG 1 tablet Orally julian ry 12 hrs; Duration: 7 day(s) 08/29/2021 Active Citalopram Hydrobromide 20 MG 1 tablet O rally Once a day Active Omeprazole Active Diflucan 150 MG 1 tablet Orally once ; Duration: 1 day 08/29/2021 Active Levocetirizine Dihydrochloride 5 MG 1 tablet in the evening Orally Once a day; Duration: 7 days 08/29/2021 Active Problems Problem Type SNOMED Code ICD Code Onset Dates Problem Status W/U Status Risk Notes Problem Generalized anxiety disorder (78645816) Generalized anxiety disorder (F41.1) Active confirmed Problem Gastro-esophagea l reflux disease without esophagitis (448317941) Gastro-esophage al reflux disease without esophagitis (K21.9) Active confirmed Plan Of Treatment No Information Medical (General) History Medical History History ICD Code GERD generalized anxiety disorder
== END 2025-05-16 16:18 | disposition home or self-care (01) ==
LOC: HO.HOS 14:57
PROVIDERS: PCP Internal Medicine; Visit Provider Orthopaedic Surgery
DX: S83.242A Other tear of medial meniscus, current injury, left knee, initial encounter (principal)
CPT/HCPCS: 99203

== ENCOUNTER → 2025-05-16 15:00 | Outpatient (BNV) | payer BC, SELFPAY | PROVIDERS: Visit Provider Radiology Diagnostic Ultrasound | DX: M17.12 Unilateral primary osteoarthritis, left knee (principal) | CPT/HCPCS: 73562 ==